=== PATIENT | female | born 1940 | race Caucasian/White ===

== ENCOUNTER 2016-09-09 13:02 | Outpatient (CLI) | END 2016-09-09 13:03 | disposition home or self-care (01) ==

== ENCOUNTER 2016-09-09 13:13 | Outpatient (CLI) | payer MEDICARE | END 2016-09-09 13:14 | disposition home or self-care (01) | DX: Z12.31 Encounter for screening mammogram for malignant neoplasm of breast (principal); Z80.3 Family history of malignant neoplasm of breast ==

== ENCOUNTER 2016-10-20 07:38 | Day surgery (SDC) | payer MEDICARE ==
[2016-10-20] MEDS ORDERED: LACTATED RINGERS 1,000 ML IV ONE (08:20)
[2016-10-20] MEDS ORDERED: fentaNYL 100 MCG/2 ML VIAL IVP ONE (08:59)
[2016-10-20] MEDS ORDERED: MIDAZOLAM 2 MG/2 ML VIAL IVP ONE (08:59)
== END 2016-10-20 07:39 | disposition home or self-care (01) ==
PROC: 0DJD8ZZ Inspection of Lower Intestinal Tract, Via Natural or Artificial Opening Endoscopic (ICD-10-PCS; principal; 2016-10-20 08:45)
DX: Z12.11 Encounter for screening for malignant neoplasm of colon (principal); K64.8 Other hemorrhoids
CPT/HCPCS: G0121; J7120

== ENCOUNTER 2017-07-20 09:59 | Outpatient (CLI) | payer MEDICARE ==
--- NOTE | 2017-07-20 14:17 | XRAY Report ---
TWO-VIEW CHEST: 07/20/2017 CLINICAL INDICATION: Shortness of breath. FINDINGS: Frontal and lateral views of the chest demonstrate a normal cardiac silhouette. The lungs are clear. No effusion or pneumothorax is present. IMPRESSION: NORMAL CHEST. JOB #: [id number] EXT JOB #:[id number]
== END 2017-07-20 10:00 | disposition home or self-care (01) ==
LOC: DI.S 09:59
PROVIDERS: ATTEND Physician Assistant
DX: R06.02 Shortness of breath (principal)
CPT/HCPCS: 71020

== ENCOUNTER 2017-08-10 12:50 | Outpatient (CLI) | payer MEDICARE | END 2017-08-10 12:51 | disposition home or self-care (01) | LOC: DI 12:50 | PROVIDERS: ATTEND Internal Medicine Cardiovascular Disease | DX: R01.1 Cardiac murmur, unspecified (principal); R06.00 Dyspnea, unspecified | CPT/HCPCS: 93306 ==

== ENCOUNTER 2017-09-01 11:30 | Outpatient (CLI) | payer MEDICARE ==
[2017-09-01 19:06] LABS: CALCIUM 9.1 mg/dL (8.5-10.3); CREATININE 0.6 mg/dL (0.4-1.0); POTASSIUM 3.9 mmol/L (3.5-5.0)
== END 2017-09-01 11:31 | disposition home or self-care (01) ==
LOC: LAB.F 11:30
PROVIDERS: ATTEND Internal Medicine Cardiovascular Disease
DX: I10 Essential (primary) hypertension (principal)
CPT/HCPCS: 36415; 80048

== ENCOUNTER 2018-09-16 14:19 | Outpatient (CLI) | payer MEDICARE ==
--- NOTE | 2018-09-16 18:23 | XRAY Report ---
Reason: PAIN IN RIGHT HIP Procedure Date: 09/16/2018 Accession Number: [id number] / [id number] Procedure: XR - Hip w/Pelvis 2-3V RT CPT Code: FULL RESULT: EXAM: RIGHT HIP AND PELVIS RADIOGRAPHY EXAM DATE: 09/16/2018 02:59 PM. HISTORY: PAIN IN RIGHT HIP. COMPARISONS: XR HIP UNILAT MIN 2 VIEW 06/03/2012 11:52 AM. TECHNIQUE: 1 view of the pelvis and 1 view of the hip. FINDINGS: Bones: Normal. No fracture or bone lesion. Joints: Mild bilateral hip joint space narrowing. No dislocation. Soft Tissues: Normal. No soft tissue swelling. IMPRESSION: Mild bilateral hip degenerative changes. RADIA
== END 2018-09-16 14:20 | disposition home or self-care (01) ==
LOC: DI 14:19
PROVIDERS: ATTEND Physician Assistant
DX: M16.0 Bilateral primary osteoarthritis of hip (principal)

== ENCOUNTER 2018-09-22 08:00 | Outpatient (CLI) | payer MEDICARE ==
[2018-09-22 19:10] LABS: BASOPHILS # (AUTO) 0.1 10^3/uL (0.0-0.1); BASOPHILS % (AUTO) 1.3 %; EOSINOPHILS # (AUTO) 0.3 10^3/uL (0.0-0.7); EOSINOPHILS % (AUTO) 3.8 %; HGB - HEMOGLOBIN 12.9 g/dL (12.0-16.0); LYMPHOCYTES # (AUTO) 1.6 10^3/uL (1.5-3.5); LYMPHOCYTES % (AUTO) 22.8 %; MEAN CORPUSCULAR HEMOGLOBIN 28.3 pg (27.0-31.0); MEAN CORPUSCULAR HGB CONC 32.1 g/dL (32.0-36.0); MEAN CORPUSCULAR VOLUME 88.1 fL (81.0-99.0); MONOCYTES # (AUTO) 0.6 10^3/uL (0.0-1.0); MONOCYTES % (AUTO) 8.3 %; NEUTROPHILS # (AUTO) 4.4 10^3/uL (1.5-6.6); NEUTROPHILS % (AUTO) 63.8 %; RED BLOOD COUNT 4.55 10^6/uL (4.20-5.40); RED CELL DISTRIBUTION WIDTH 12.9 % (12.0-15.0); WHITE BLOOD COUNT 6.9 x10^3/uL (4.8-10.8)
[2018-09-22 19:11] LABS: PLATELET ESTIMATE, MANUAL NORMAL (130-450,000) (NORMAL); PLATELET MORPHOLOGY NORMAL APPEARANCE (NORMAL); RBC MORPHOLOGY (MULTIPLE) NORMAL APPEARANCE (NORMAL)
== END 2018-09-22 23:59 | disposition home or self-care (01) ==
LOC: LAB.F 08:00
PROVIDERS: ATTEND Physician Assistant
DX: R79.9 Abnormal finding of blood chemistry, unspecified (principal)
CPT/HCPCS: 36415; 85025

== ENCOUNTER 2018-12-17 12:28 | Outpatient (CLI) | payer MEDICARE ==
--- NOTE | 2018-12-17 15:07 | XRAY Report ---
Reason: ACUTE BRONCHITIS UNSPECIFIED Procedure Date: 12/17/2018 Accession Number: [id number] / [id number] Procedure: XR - Chest 2 View X-Ray CPT Code: 34882 FULL RESULT: EXAM: CHEST RADIOGRAPHY EXAM DATE: 12/17/2018 01:14 PM. CLINICAL HISTORY: Acute bronchitis unspecified. Short of breath, non-productive cough x 1 month. COMPARISON: CHEST 2 VIEW PA/LAT 07/20/2017 10:13 AM. TECHNIQUE: 2 views. FINDINGS: Lungs/Pleura: No focal opacities evident. No pleural effusion. No pneumothorax. Normal volumes. There is questionably mild bronchial wall thickening, minimally increased compared to prior. Mediastinum: Cardiomediastinal contour is stable with borderline cardiomegaly and calcified aortic arch. Other: Bone anchors in the right humeral head, prior orthopedic repair. Abnormal appearance of the right AC joint, possible separation and not completely imaged. The bones are qualitatively osteopenic; this limits evaluation for underlying fractures or masses. IMPRESSION: Bilateral airway thickening can be seen in the setting of bronchiolitis or reactive airways disease. No focal lung parenchymal consolidation identified to suggest superimposed pneumonia. RADIA
== END 2018-12-17 12:29 | disposition home or self-care (01) ==
LOC: DI 12:28
PROVIDERS: ATTEND Nurse Practitioner Family
DX: J20.9 Acute bronchitis, unspecified (principal)
CPT/HCPCS: 71046

== ENCOUNTER 2018-12-29 08:02 | Outpatient (CLI) | payer MEDICARE ==
--- NOTE | 2018-12-29 09:21 | Mammography Report ---
Reason: ENCOUNTER FOR SCREENING MAMMOGRAM FOR MALIGNANT NE Procedure Date: 12/29/2018 Accession Number: [id number] / [id number] Procedure: KERRI - Screening Mammo w/Ted CPT Code: FULL RESULT: EXAM: Screening Mammo w/Ted DATE: 12/29/2018 8:34 AM CLINICAL HISTORY: Screening encounter. No reported risk factors. TECHNIQUE: (B) - Bilateral CC and MLO views were obtained. COMPARISON: 09/09/2016 through 27/05/2012. PARENCHYMAL PATTERN: (A) - The breast(s) demonstrate(s) scattered fibroglandular densities. FINDINGS: There are coarse typically benign calcifications. There are no suspicious masses, calcifications, or areas of distortion. IMPRESSION: Benign findings. BI-RADS category 2. RECOMMENDATION: (ANNUAL) - Recommend routine annual screening mammography. BI-RADS CATEGORY: (2) - Benign Findings. STANDARD QUALIFYING STATEMENTS: 1. This examination was not reviewed with the aid of Computer-Aided Detection (CAD). 2. A negative or benign imaging report should not preclude biopsy if clinically suspicious findings are present. 3. Dense breasts may obscure an underlying neoplasm. 4. This examination was reviewed with the aid of 3D breast imaging (tomosynthesis).
== END 2018-12-29 08:03 | disposition home or self-care (01) ==
LOC: DI 08:02
PROVIDERS: ATTEND Physician Assistant
DX: Z12.31 Encounter for screening mammogram for malignant neoplasm of breast (principal)
CPT/HCPCS: 77063; 77067

== ENCOUNTER 2018-12-29 08:03 | Outpatient (CLI) | payer MEDICARE ==
--- NOTE | 2018-12-30 09:00 | DEXA Report ---
Reason: ASYMPTOMATIC MENOPAUSAL STATE Procedure Date: 12/29/2018 Accession Number: [id number] / [id number] Procedure: DEX - Dexa Spine and/or Hip CPT Code: FULL RESULT: EXAM: Dexa Spine and/or Hip DATE: 12/29/2018 8:45 AM CLINICAL HISTORY: ASYMPTOMATIC MENOPAUSAL STATE TECHNIQUE: Dual energy x-ray absorptiometry (DXA) was performed on a Targeted Growth System. Regions measured are the AP Spine, femoral neck, and if needed forearm. COMPARISON: 09/09/2016. In accordance with the International Society for Clinical Densitometry (ISCD) guidelines, data from previous exams may be reanalyzed using current recommendations and techniques. This is done to allow a more accurate basis for comparison with the current study. FINDINGS: The data for the lumbar spine is as follows: BMD (g/cm/cm) T-SCORE Z-SCORE REGION L1 0.888 -2.0 -0.1 L2 0.948 -2.1 -0.2 L3 1.045 -1.3 0.6 L4 1.099 -0.8 1.0 TOTAL 1.001 -1.5 0.4 NOTE: All evaluable vertebrae are used for classification The data for the hip is as follows: BMD (g/cm/cm) T-SCORE Z-SCORE REGION Neck 0.728 -2.2 0.0 TOTAL 0.754 -2.0 0.0 NOTE: The femoral neck or total proximal femur, whichever is lowest, is used for classification. DXA RESULTS SUMMARY: Spine SCAN DATE AGE BMD CHANGE VS CHANGE VS PREVIOUS PREVIOUS % [birth year]29[birth year]2018 [age] 1.001 0.042* 4.4* 09/09/2016 [age] 0.959 * Denotes significant change at the 95% confidence level. Denotes dissimilar scan types or analysis methods. DXA RESULTS SUMMARY: Hip SCAN DATE AGE BMD CHANGE VS CHANGE VS PREVIOUS PREVIOUS % [birth year]29[birth year]2018 78.3 0.754 -0.022 -2.8 09/09/2016 [age] 0.776 * Denotes significant change at the 95% confidence level. Denotes dissimilar scan types or analysis methods. IMPRESSION: THE WHO CLASSIFICATION BASED ON THE INTERNATIONAL REFERENCE STANDARD IS OSTEOPENIA. THE FRACTURE RISK IS INCREASED. RECOMMENDATION: Patients with diagnosis of osteoporosis or osteopenia should have regular bone mineral density assessment. For those eligible for Medicare, routine testing is allowed once every 2 years. Testing frequency can be increased for patients who have rapidly progressing disease or for those who are receiving medical therapy to restore bone mass. COMMENT: World Health Organization (WHO) definitions for osteoporosis and osteopenia: NORMAL BMD: T-score at -1.0 or higher, fracture risk is low OSTEOPENIA BMD: T-score between -1.0 and -2.5, fracture risk is increased. OSTEOPOROSIS BMD: T-score at -2.5 or lower, fracture risk is high. National Osteoporosis Foundation recommends: 1. Obtain adequate dietary calcium (at least 1200 mg per day) and vitamin D (400-800 international units per day). 2. Participate, as appropriate, in regular weightbearing and muscle-strengthening exercise. 3. Avoid tobacco use and reduce alcohol and caffeine intake. 4. For more detailed information see the website at www.NOF.org.
== END 2018-12-29 08:04 | disposition home or self-care (01) ==
LOC: DI 08:03
PROVIDERS: ATTEND Physician Assistant
DX: M85.89 Other specified disorders of bone density and structure, multiple sites (principal)
CPT/HCPCS: 77080

== ENCOUNTER 2019-03-08 10:30 | Outpatient (CLI) | payer MEDICARE ==
--- NOTE | 2019-03-09 09:42 | XRAY Report ---
Reason: LOW BACK PAIN Procedure Date: 03/08/2019 Accession Number: [id number] / [id number] Procedure: XRS - Lumbar Spine 2 View CPT Code: FULL RESULT: EXAM: LUMBOSACRAL SPINE RADIOGRAPHY EXAM DATE: 03/08/2019 10:55 AM. CLINICAL HISTORY: Low back pain. COMPARISONS: None. TECHNIQUE: 3 views. FINDINGS: Alignment: Levoconvex lumbar curvature measures approximately 11 degrees from T12 to L4. 6 mm anterolisthesis at L4-L5. No fortunato spondylolysis. Bones: Five eyg-wwi-kssjjjh lumbar vertebral bodies are present. No fractures or bone lesions. Disks: Mild disk space narrowing at L3-L4 and L4-L5 Facets: L4-L5 and L5-S1 degenerative disease. Sacroiliac Joints: Unremarkable. Soft Tissues: 2.5 cm rounded grouping of coarse calcifications in the pelvis probably represents a calcified fibroid. The visualized bowel gas pattern is normal. IMPRESSION: 1. No definite acute abnormality. 2. 11 degrees of levoconvex lumbar curvature. 3. Degenerative disk and facet disease, as above. 4. Grade 1 anterolisthesis at L4-L5, without fortunato spondylolysis. 5. Probable calcified uterine fibroid. RADIA
== END 2019-03-08 10:31 | disposition home or self-care (01) ==
LOC: DI.S 10:30
PROVIDERS: ATTEND Physician Assistant
DX: M43.8X5 Other specified deforming dorsopathies, thoracolumbar region (principal); M51.36 Other intervertebral disc degeneration, lumbar region; M47.816 Spondylosis without myelopathy or radiculopathy, lumbar region; M47.817 Spondylosis without myelopathy or radiculopathy, lumbosacral region; M43.16 Spondylolisthesis, lumbar region
CPT/HCPCS: 72100

== ENCOUNTER 2019-04-20 18:40 | Outpatient (CLI) | payer MEDICARE | END 2019-04-20 18:41 | disposition short-term general hospital (02) | LOC: EMS 18:40 | PROVIDERS: ATTEND Surgery | DX: R55 Syncope and collapse (principal); R12 Heartburn | CPT/HCPCS: A0425; A0427 ==

== ENCOUNTER 2019-06-20 11:20 | Outpatient (CLI) | payer MEDICARE ==
--- NOTE | 2019-06-20 16:03 | XRAY Report ---
Reason: KNEE PAIN Procedure Date: 06/20/2019 Accession Number: [id number] / [id number] Procedure: XRS - Knee 3 View LT CPT Code: FULL RESULT: EXAM: LEFT KNEE RADIOGRAPHY EXAM DATE: 06/20/2019 11:41 AM. CLINICAL HISTORY: Left knee injury 3 weeks ago while lifting weights. Pain is lateral to the patella. COMPARISON: None. TECHNIQUE: 3 views. FINDINGS: Bones: Normal. No fractures or bone lesions. Joints: There is mild joint space narrowing along the lateral patellar facet with mild lateral deviation of the patella. No dislocation or joint effusion. Soft Tissues: Normal. No soft tissue swelling. IMPRESSION: Mild lateral deviation of the patella with apparent joint space narrowing along the lateral patella facet. RADIA
== END 2019-06-20 11:21 | disposition home or self-care (01) ==
LOC: DI.S 11:20
PROVIDERS: ATTEND Nurse Practitioner Family
DX: M25.562 Pain in left knee (principal)

== ENCOUNTER 2020-02-20 11:26 | Outpatient (CLI) | payer MEDICARE ==
--- NOTE | 2020-02-23 08:13 | Mammography Report ---
Reason: ROUTINE Procedure Date: 02/20/2020 Accession Number: [id number] / [id number] Procedure: MGS - Screening Mammo Dig Bilat CPT Code: Final Report FULL RESULT: BILATERAL DIGITAL SCREENING MAMMOGRAM: 02/20/2020 CLINICAL: Routine screening. Comparison is made to exams dated: 08/27/2016 mammogram, 12/29/2018 mammogram, 10/20/2013 mammogram, and 10/11/2013 mammogram - [facility]. There are scattered fibroglandular elements in both breasts. No significant masses, calcifications, or other findings are seen in either breast. There has been no significant interval change. IMPRESSION: NEGATIVE There is no mammographic evidence of malignancy. A 1 year screening mammogram is recommended. This exam was interpreted at Station ID: [id number]. NOTE: For mammograms, a report in lay terms will be sent to the patient. Approximately 15% of breast malignancies will not be visualized mammographically. In the management of a palpable breast mass, a negative mammogram must not discourage biopsy of a clinically suspicious lesion. Electronically Signed By: Nichelle ayers/jamar:02/22/2020 13:24:02 ACR BI-RADS Category 1: Negative 3341F B -Scattered fibroglandular 1 Mammogram [id number] 1 year screening B
== END 2020-02-20 11:27 | disposition home or self-care (01) ==
LOC: DI.S 11:26
PROVIDERS: ATTEND Physician Assistant
DX: Z12.31 Encounter for screening mammogram for malignant neoplasm of breast (principal)
CPT/HCPCS: 77067

== ENCOUNTER 2021-06-05 10:49 | Outpatient (CLI) | payer MEDICARE ==
[2021-06-05 15:02] LABS: BILIRUBIN,URINE NEGATIVE (NEGATIVE); GLUCOSE, URINE (UA) NEGATIVE (NEGATIVE); KETONES,URINE (UA) NEGATIVE (NEGATIVE); LEUKOCYTE ESTERASE, URINE NEGATIVE (NEGATIVE); NITRITE,URINE NEGATIVE (NEGATIVE); OCCULT BLOOD,URINE MODERATE (NEGATIVE); PROTEIN,URINE TRACE mg/dL (NEGATIVE); UROBILINOGEN,URINE 0.2 (NORMAL) E.U./dL (NORMAL)
[2021-06-05 15:03] LABS: CLARITY,URINE CLEAR (CLEAR)
[2021-06-05 15:14] LABS: BACTERIA,URINE Few /HPF (None Seen); SQUAMOUS EPITHELIAL CELL,UR RARE Squamous (<= Few)
[2021-06-05 20:39] LABS: BACTERIAL VAGINOSIS DNA NEGATIVE (NEGATIVE); CANDIDA GLABRATA DNA NEGATIVE (NEGATIVE); CANDIDA GROUP DNA NEGATIVE (NEGATIVE); CANDIDA KRUSEI DNA NEGATIVE (NEGATIVE); TRICHOMONAS VAGINALIS DNA NEGATIVE (NEGATIVE)
== END 2021-06-05 10:50 ==
LOC: LAB.S 10:49
PROVIDERS: ATTEND Physician Assistant Medical
DX: L29.8 Other pruritus (principal); N39.0 Urinary tract infection, site not specified
CPT/HCPCS: 81001; 87077; 87086; 87181; 87661; 87801

== ENCOUNTER 2022-05-27 18:09 | Outpatient (CLI) | payer MEDICARE | END 2022-05-27 18:10 | disposition critical access hospital (66) | LOC: EMS 18:09 | DX: R53.1 Weakness (principal); R05.9 Cough, unspecified; R07.9 Chest pain, unspecified; R50.9 Fever, unspecified | CPT/HCPCS: A0425; A0429 ==

== ENCOUNTER 2022-05-27 18:45 | Emergency (ER) | payer MEDICARE ==
--- OUTSIDE RECORDS SUMMARY | 2022-05-27 18:54 | EXTERNAL MEDICAL SUMMARY RPT | Continuity of Care Document ---
:1940 Author Organization [facility] Address [address] [place] [address] Phone Care Team Providers Name Role Phone Unavailable Unavailable Unavailable Ronaldo Ruano, Lisa Unavailable Unavailable [place] Patient Registrar, Cora Unavailable Unava ilable Allergies No information. Encounters No information. Functional Status No information. Immunizations No information. Medications date description facility [phone] INFLAVONOID INTENSIVE CARE Walk[facility] C daniel [phone]+0000 INFLAVONOID INTENSIVE CARE Walk[facility] Services C daniel [phone]+0000 VITAMIN C 2000MG [facility] Services C daniel [phone]+0000 VITAMIN C 2000MG [facility] C daniel [phone]+0000 FLUTICASONE PROPIONATE [facility] C daniel [phone]+0000 FLUTICASONE PROPIONATE [facility] daniel [phone]+0000 ASPIRIN [facility] C daniel [phone]+0000 ASPIRIN [facility] C daniel [phone]+0000 MULTIPLE VITAMIN [facility] C daniel [phone]+0000 MULTIPLE VITAMIN [facility] C daniel [phone]+0000 VITAMIN E [facility] C daniel [phone]+0000 VITAMIN E [facility] C daniel [phone]+0000 FLUTICASONE PROPIONATE [facility] daniel [phone]+0000 FLUTICASONE PROPIONATE [facility] C daniel [phone]+0000 MULTIPLE VITAMIN [facility] C daniel [phone]+0000 MULTIPLE VITAMIN [facility] C daniel [phone]+0000 [id number] E [facility] C daniel [phone]+0000 [id number] E [facility] C daniel [phone]+0000 EPINEPHRINE HCL (ANAPHYLAXIS) [facility] daniel [phone]+0000 EPINEPHRINE HCL (ANAPHYLAXIS) [facility] C daniel [phone]+0000 FLUTICASONE PROPIONATE [facility] C daniel [phone]+0000 FLUTICASONE PROPIONATE [facility] C daniel [phone]+0000 ASPIRIN [facility] C daniel [phone]+0000 ASPIRIN [facility] C daniel [phone]+0000 VITAMIN E [facility] C daniel [phone]+0000 VITAMIN E [facility] C daniel [phone]+0000 NUTRITIONAL SUPPLEMENTS [facility] C daniel [phone]+0000 NUTRITIONAL SUPPLEMENTS [facility] C daniel [phone]+0000 ASPIRIN [facility] C daniel [phone]+0000 ASPIRIN [facility] C daniel [phone]+0000 COENZYME Q10 [facility] C daniel [phone]+0000 COENZYME Q10 [facility] C daniel [phone]+0000 MAGNESIUM GLYCINATE [facility] C daniel [phone]+0000 MAGNESIUM GLYCINATE [facility] C daniel [phone]+0000 EPINEPHRINE HCL (ANAPHYLAXIS) [facility] C daniel [phone]+0000 EPINEPHRINE HCL (ANAPHYLAXIS) [facility] C daniel [phone]+0000 VITAMIN E [facility] C daniel [phone]+0000 VITAMIN E [facility] C daniel [phone]+0000 FLUTICASONE PROPIONATE [facility] C daniel [phone]+0000 FLUTICASONE PROPIONATE [facility] C daniel [phone]+0000 MAGNESIUM GLYCINATE [facility] C daniel [phone]+0000 MAGNESIUM GLYCINATE [facility] C daniel [phone]+0000 COENZYME Q10 [facility] C daniel [phone]+0000 COENZYME Q10 [facility] C daniel [phone]+0000 EPINEPHRINE HCL (ANAPHYLAXIS) [facility] C daniel [phone]+0000 EPINEPHRINE HCL (ANAPHYLAXIS) [facility] C daniel [phone]+0000 NUTRITIONAL SUPPLEMENTS [facility] C daniel [phone]+0000 NUTRITIONAL SUPPLEMENTS [facility] C daniel [phone]+0000 ASPIRIN [facility] C daniel [phone]+0000 ASPIRIN [facility] C daniel [phone]+0000 VITAMIN E [facility] C daniel [phone]+0000 VITAMIN E [facility] C daniel [phone]+0000 MULTIPLE VITAMIN [facility] C daniel [phone]+0000 MULTIPLE VITAMIN [facility] C daniel [phone]+0000 [id number] E [facility] C daniel [phone]+0000 [id number] E [facility] C daniel [phone]+0000 NUTRITIONAL SUPPLEMENTS [facility] C daniel [phone]+0000 NUTRITIONAL SUPPLEMENTS [facility] C daniel [phone]+0000 MAGNESIUM GLYCINATE [facility] Care & Ancillary Services C daniel [phone]+0000 MAGNESIUM GLYCINATE [facility] Care & Ancillary Services C daniel [phone]+0000 COENZYME Q10 [facility] C daniel +0000 COENZYME Q10 [facility] C daniel +0000 [id number] E [facility] C daniel +0000 [id number] E [facility] C daniel +0000 MAGNESIUM GLYCINATE [facility] Care & Ancillary Services C daniel +0000 MAGNESIUM GLYCINATE [facility] Care & Ancillary Services Luis sanchez Problems No information. Procedures date description facility +0000 Visit Code Hold [facility] Services C daniel +0000 COVID, FLU A+B Antigen (In Walk[facility]In in [facility] Free Test) Ancillary Services Luis sanchez Results/Labs No information. Social History date description facility +0000 Never smoker [facility] & [facility] Services [place] Vital Signs date measurement value units +0000 BMI BMI 26.82 kg/m2 +0000 BP_diastolic BP_diastolic 91 mmHg +0000 BP_systolic BP_systolic 184 mmHg +0000 heart_rate heart_rate 70 /min +0000 height_metric height_metric 153.03 cm +0000 height_standard height_standard 60.25 in +0000 respiration_rate respiration_rate 16 /min +0000 temperature_metric temperature_metric 37.06 C +0000 temperature_standard temperature_standard 9 8.7 F +0000 weight_metric weight_metric 62.6 kg +0000 weight_standard weight_standard 138 lb
[2022-05-27 19:09] LABS: BASOPHILS # (AUTO) 0.1 10^3/uL (0.0-0.1); EOSINOPHILS # (AUTO) 0.1 10^3/uL (0.0-0.7); HCT - HEMATOCRIT 34.2 % (37.0-47.0); HGB - HEMOGLOBIN 11.9 g/dL (12.0-16.0); LYMPHOCYTES # (AUTO) 0.5 10^3/uL (1.5-3.5); LYMPHOCYTES % (AUTO) 10.4 %; MEAN CORPUSCULAR HEMOGLOBIN 29.3 pg (27.0-31.0); MEAN CORPUSCULAR HGB CONC 34.8 g/dL (32.0-36.0); MEAN CORPUSCULAR VOLUME 84.2 fL (81.0-99.0); MEAN PLATELET VOLUME 9.8 fL (7.9-10.8); NEUTROPHILS # (AUTO) 3.3 10^3/uL (1.5-6.6); NEUTROPHILS % (AUTO) 66.4 %; PLT - PLATELET COUNT 192 10^3/uL (130-450); RED BLOOD COUNT 4.06 10^6/uL (4.20-5.40); WHITE BLOOD COUNT 4.9 x10^3/uL (4.8-10.8)
[2022-05-27 19:20] LABS: ALBUMIN 3.9 g/dL (3.2-5.5); ALBUMIN/GLOBULIN RATIO 1.5 (1.0-2.2); BILIRUBIN,TOTAL 0.6 mg/dL (0.2-1.0); CALCIUM 8.9 mg/dL (8.5-10.3); CREATININE 0.6 mg/dL (0.4-1.0); POTASSIUM 3.3 mmol/L (3.5-5.0); TOTAL PROTEIN 6.5 g/dL (6.7-8.2)
--- NOTE | 2022-05-27 19:32 | XRAY Report ---
PROCEDURE: Chest 1 View X-Ray INDICATIONS: Chest Pain TECHNIQUE: One view of the chest was acquired. COMPARISON: Chest radiographs 12/17/2018 FINDINGS: Surgical changes and devices: Surgical anchors are seen in the right. Lungs and pleura: No pleural effusions or pneumothorax. Lungs are mildly hyperexpanded. Chronic appe aring reticulations are seen bilaterally. No acute consolidation. Mediastinum: Mediastinal contours appear normal. Heart size is mildly enlarged. Bones and chest wall: No suspicious bony lesions. Overlying soft tissues appear unremarkable. IMPRESSION: 1.Mildly hyperexpanded lungs can be seen in setting of COPD. 2.Mild cardiomegaly. 3.Bilateral chronic reticular interstitial markings. No acute consolidation. Reviewed by: Arnoldo Andino MD on 05/27/2022 7:31 PM PDT Approved by: Arnoldo Andino MD on 05/27/2022 7:31 PM PDT Station ID: [id number]
--- NOTE | 2022-05-27 19:36 | ED Physician Documentation ---
PD HPI URI - Stated complaint Stated Complaint: CHEST PX - Chief complaint Chief Complaint: Resp - History obtained from History obtained from: Patient - History of Present Illness Timing - onset: Today - Additional information Additional information: Patient is an 81-year-old female who presents to the emergency department with a cough for the past 2 days. Negative COVID test today. She states that she has had intermittent chest pain, 1 to 2 minutes at a time, feels like a pressure. Nonradiating. Nothing makes it better or worse. This started last night and has occurred intermittently throughout the day. No change with exertion, inspiration. 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[employer]OMATIC: Tubal ligation - Present Medications Home Medications: Ambulatory Orders Medication Instructions Recorded Confirmed Aspirin Chewable [[place] 80 mg PO DAILY 10/17/16 10/17/16 Aspirin] Losartan [Cozaar] 50 mg PO DAILY 10/17/16 10/20/16 Ubidecarenone [Co Q-10] 100 mg PO DAILY 10/17/16 10/20/16 Latanoprost 0.005% Ophth Drops 1 drops EACHEYE DAILY 10/20/16 10/20/16 [Xalatan Ophth Drops] Timolol 0.25% Ophth Drops 1 drops EACHEYE BID 10/20/16 10/20/16 [Timoptic 0.25% Ophth Drops] - Allergies Allergies/Adverse Reactions: Allergies Allergy/AdvReac Type Severity Reaction Status Date / Time Sulfa (Sulfonamide Allergy Hives Verified 05/27/22 18:51 Antibiotics) PD ED PE NORMAL - Vitals Vital signs reviewed: Yes - General General: Alert and oriented X 3, No acute distress - HEENT HEENT: PERRL, Moist mucous membranes - Neck Neck: Supple, no meningeal sign - Cardiac Cardiac: RRR, Strong equal pulses - Respiratory Respiratory: No respiratory distress, Clear bilaterally - Abdomen Abdomen: Soft, Non tender, Non distended - Derm Derm: Warm and dry - Extremities Extremities: No edema, No calf tenderness / cord - Neuro Neuro: Alert and oriented X 3 - Psych Psych: Normal mood, Normal affect Results - Vitals Vitals: Vital Signs - 24 hr 05/27/22 05/27/22 18:51 19:40 Temperature 36.9 C 36.5 C Heart Rate 73 70 Respiratory 16 14 Rate Blood Pressure 130/90 H 138/83 H O2 Saturation 98 99 Oxygen O2 Source Room air - EKG (time done) 1900 Rate: Rate (enter#) (71) Rhythm: NSR [place]: Normal Intervals: Normal PA QRS: Normal Ischemia: Normal ST segments - Labs Labs: Laboratory Tests 05/27/22 05/27/22 05/27/22 19:00 19:00 19:00 WBC 4.9 RBC 4.06 L Hgb 11.9 L Hct 34.2 L MCV 84.2 MCH 29.3 MCHC 34.8 RDW 13.0 Plt Count 192 MPV 9.8 Neut # (Auto) 3.3 Lymph # (Auto) 0.5 L [place] # (Auto) 1.0 Eos # (Auto) 0.1 Baso # (Auto) 0.1 Absolute Nucleated RBC 0.00 Nucleated RBC % 0.0 Sodium 127 L Potassium 3.3 L Chloride 91 L Carbon Dioxide 26 Anion Gap 10.0 BUN 10 Creatinine 0.6 Estimated GFR (MDRD) 95 Glucose 109 H Calcium 8.9 Total Bilirubin 0.6 AST 27 ALT 21 Alkaline Phosphatase 63 Troponin I High Sens 6.3 Total Protein 6.5 L Albumin 3.9 Globulin 2.6 Albumin/Globulin Ratio 1.5 Lipase 31 - Rads (name of study) Chest x-ray Radiology: Final report received, EMP read contemporaneously, See rad report (No acute abnormality) PD MEDICAL DECISION MAKING - ED course Complexity details: reviewed results, re-evaluated patient, considered differential (No ST elevation VT, no aortic dissection, no PE, no tension pneumothorax, no aortic aneurysm), d/w patient ED course: Patient with atypical chest pain. Likely related to her upper respiratory infection. No evidence of pneumonia. She is very well-appearing, nontoxic. No evidence of acute coronary syndrome, pulmonary embolus, pneumothorax, myocarditis. Patient is asymptomatic here. Patient counseled regarding signs and symptoms for which I believe and urgent re-evaluation would be necessary. Patient with good understanding of and agreement to plan and is comfortable going home at this time This document was made in part using voice recognition software. While efforts are made to proofread this document, sound alike and grammatical errors may occur. Departure - Departure Disposition: 01 Home, Self Care Clinical Impression: Hyponatremia Upper respiratory tract infection Qualifiers: URI type: unspecified viral URI Qualified Code(s): J06.9 - Acute upper respiratory infection, unspecified Chest pain Qualifiers: Chest pain type: unspecified Qualified Code(s): R07.9 - Chest pain, unspecified Condition: Good Instructions: ED Chest Pain Atypical Unkn Cause, ED Viral Syndrome Follow-Up: Sarina Petit ARNP [Primary Care Provider] - Within 1 week Comments: Please make sure you are drinking plenty of water at home. Please follow-up with your doctor for further care. Please return if you worsen. You should have your sodium levels rechecked with your doctor within 1 week. Discharge Date/Time: 05/27/22 19:39
[2022-05-27 19:41] VITALS: BP 138/83
== END 2022-05-27 19:39 | disposition home or self-care (01) ==
LOC: EDUNIT# → ED 18:45
DX: J06.9 Acute upper respiratory infection, unspecified (principal); E87.1 Hypo-osmolality and hyponatremia
CPT/HCPCS: 36415; 80053; 83690; 84484; 85025; 93005; 99283; 99284

== ENCOUNTER 2022-10-07 07:12 | Outpatient (CLI) | payer MEDICARE ==
--- NOTE | 2022-10-07 11:41 | XRAY Report ---
PROCEDURE: Hip w/Pelvis 2-3V LT INDICATIONS: ARTHRITIS OF LEFT HIP TECHNIQUE: AP pelvis with lateral view(s) of the with hip(s). COMPARISON: X-ray head 09/16/2018 FINDINGS: Bones: No fractures or dislocations. Pelvic ring appears intact. No suspicious bony lesions. Ther e is moderate bilateral degenerative hip joint space narrowing. No erosions. No periarticular osteoph ytes. Appearance is relatively stable. Soft tissues: The visualized bowel gas pattern is normal. Calcification is noted overlying the lower left pelvis likely related to calcified fibroid and is unchanged. IMPRESSION: Moderate bilateral hip arthritis stable compared to prior exam. Reviewed by: Mary Beth Ayers MD on 10/07/2022 11:40 AM PST Approved by: Mary Beth Ayers MD on 10/07/2022 11:40 AM PST Station ID: [id number]
[2022-10-07 14:23] LABS: CALCIUM 9.4 mg/dL (8.5-10.3); CREATININE 0.6 mg/dL (0.4-1.0); POTASSIUM 4.1 mmol/L (3.5-5.0)
== END 2022-10-07 07:13 | disposition home or self-care (01) ==
LOC: DI.S 07:12
PROVIDERS: ATTEND Registered Nurse
DX: M16.0 Bilateral primary osteoarthritis of hip (principal); I10 Essential (primary) hypertension
CPT/HCPCS: 36415; 80048

== ENCOUNTER 2023-05-02 10:11 | Emergency (ER) | payer MEDICARE ==
--- NOTE | 2023-05-02 10:35 | ED Physician Documentation ---
PD HPI FOCAL NEURO - Stated complaint Stated Complaint: VILLALPANDO,DIZZINESS - Chief complaint Chief Complaint: Neuro - History obtained from History obtained from: Patient - History of Present Illness Timing - onset: How many hours ago (1 1/2), Today Timing - duration: Minutes (10-15) Timing - details: Now resolved, Other (she was with for walk outdoors and came across a friend and tried to talk iwth her, but was having trouble finding correct words. Able to speak words and enunciate, but wearched for correct words. Lasted about 10-15 minutes as she walked back home. No focal weaknesses with it. BP noted high.) Severity of deficit: Mild Weakness: No: Face, Arm, Leg Numbness: No: Face, Arm, Leg Associated symptoms: No: Headache, Nausea / vomiting Contributing factors: negative: Anticoagulated, Atrial fibrillation Baseline status: positive: A&OX3, ambulatory, indep Similar symptoms before: Has not had sx before Recently seen: Not recently seen Review of Systems Constitutional: denies: Fever, Chills Nose: denies: Rhinorrhea / runny nose, Congestion Throat: denies: Sore throat Cardiac: denies: Chest pain / pressure, Palpitations Respiratory: denies: Dyspnea, Cough GI: denies: Abdominal Pain, Nausea, Vomiting Neurologic: denies: Focal weakness, Numbness, Near syncope, Altered mental status, Headache PD PAST MEDICAL HISTORY - Past Medical History Cardiovascular: Hypertension, Other Respiratory: Asthma, Shortness of breath, Other Endocrine/Autoimmune: None GI: None : None HEENT: Glaucoma, Other Psych: None Musculoskeletal: Osteoarthritis Derm: None - Past Surgical History Ortho: Rotator cuff repair /CLAIMS 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: Tubal ligation - Present Medications Home Medications: Ambulatory Orders Medication Instructions Recorded Confirmed Losartan [Cozaar] 50 mg PO DAILY 10/17/16 05/02/23 Latanoprost 0.005% Ophth Drops 1 drops EACHEYE DAILY 10/20/16 05/02/23 [Xalatan Ophth Drops] - Allergies Allergies/Adverse Reactions: Allergies Allergy/AdvReac Type Severity Reaction Status Date / Time Sulfa (Sulfonamide Allergy Hives Verified 05/02/23 10:15 Antibiotics) PD ED PE NORMAL - Vitals Vital signs reviewed: Yes - General General: Alert and oriented X 3, No acute distress, Well developed/nourished - HEENT HEENT: Moist mucous membranes, Pharynx benign - Neck Neck: Supple, no meningeal sign, No adenopathy, No bruit - Cardiac Cardiac: RRR, Other (2/6 systolic decrescendo murmur left chest without obvious radiation. ) - Respiratory Respiratory: Clear bilaterally - Abdomen Abdomen: Soft, Non tender - Derm Derm: Normal color, Warm and dry - Extremities Extremities: No edema, No calf tenderness / cord - Neuro Neuro: Alert and oriented X 3, No motor deficit, Normal speech NIHSS - Level of Consciousness Level of consciousness: (0) Alert, Keenly responsive LOC Questions: (0) Answers both Q's correct LOC Commands: (0) Performs both correctly - Gaze Best Gaze: (0) Normal - Visual Visual: (0) No loss - Facial Palsy Facial Palsy: (0) Normal, symmetrical movement - Motor Arms (both separate) Motor Arm (right): (0) No drift Motor Arm (left): (0) No drift - Motor Legs (both separate) Motor Leg (right): (0) No drift Motor Leg (left): (0) No drift - Limb Ataxia Limb Ataxia: (0) Absent - Sensory Sensory: (0) Normal - Best Language Best Language: (0) No aphasia - Dysarthria Dysarthria: (0) Normal - Extinction and Inattention (formally neg Extinction and inattention: (0) No abnormality - Total Score/Results Total Score/Result: 0 Results - Vitals Vitals: Vital Signs - 24 hr 05/02/23 05/02/23 05/02/23 10:16 11:00 11:22 Temperature 36.6 C Heart Rate 79 58 L 57 L Respiratory 18 14 15 Rate Blood Pressure 228/97 H 212/85 H 190/74 H O2 Saturation 96 100 100 05/02/23 05/02/23 13:11 14:17 Temperature Heart Rate 61 64 Respiratory 15 15 Rate Blood Pressure 220/92 H 191/84 H O2 Saturation 97 95 Oxygen O2 Source Room air - Labs Labs: Laboratory Tests 05/02/23 05/02/23 10:33 10:33 WBC 7.0 RBC 4.48 Hgb 12.7 Hct 39.0 MCV 87.1 MCH 28.3 MCHC 32.6 RDW 13.6 Plt Count 146 MPV 11.3 H Neut # (Auto) 4.8 Lymph # (Auto) 1.3 L [place] # (Auto) 0.5 Eos # (Auto) 0.2 Baso # (Auto) 0.1 Absolute Nucleated RBC 0.00 Nucleated RBC % 0.0 Sodium 135 Potassium 4.0 Chloride 101 Carbon Dioxide 27 Anion Gap 7.0 BUN 13 Creatinine 0.6 Estimated GFR (MDRD) 95 Glucose 96 Calcium 9.7 Magnesium 1.8 Total Bilirubin 0.5 AST 28 ALT 22 Alkaline Phosphatase 84 Total Protein 7.3 Albumin 4.3 Globulin 3.0 Albumin/Globulin Ratio 1.4 Lipase 25 - Rads (name of study) head/neck CTA Relevant Findings:: Prelim report reviewed (no acute findings on imaging/angio.) PD Medical Decision Making - ED course Complexity details: reviewed results (ECG showing sinus rhythm. ), considered differential, d/w patient ED course: The patient states she was on a walk with her which she commonly does in the mornings. They had not eaten as yet and she had not taken her normal medicines. This also is not uncommon. She ran into a friend on the [place] and noted difficulty finding the right words and expressing herself. She was able to articulate words but had word search. No focal weaknesses. No lightheadedness. She was able to continue walking without any unilateral weakness no ataxia. No visual change. The symptoms lasted however for about 10 to 15 minutes and then improved when they were back at the [place] head and rested. Her friend suggested she come in for evaluation. She had been feeling otherwise well the rest several days. They have some psychological stress at home with some home repairs due to a broken project [employer] and media and toilet and some friends visiting but otherwise had been feeling well. No prior similar symptoms. She does take typical blood pressure medicine losartan 50 mg daily. She had her blood pressure checked a week ago and it was 140 systolic at a regular visit. Here her blood tests have been normal. CT angio of the head and neck did not show any acute abnormalities. Her blood pressure is elevated here but she is without any symptoms. She was given her dose of her losartan. Otherwise we will start her on a baby aspirin. She does have a heart murmur that she states has not been evaluated previously but is a known murmur. In the context of the symptoms she had today, it could be prudent to get a outpatient ultrasound/echo to better evaluate it. Departure - Departure Disposition: 01 Home, Self Care Clinical Impression: Expressive aphasia, TIA (transient ischemic attack), Elevated blood pressure reading, Heart murmur Condition: Stable Record reviewed to determine appropriate education?: Yes Instructions: ED Transient Ischemic Attack Follow-Up: Humberto Gardner MD [Provider Admit Priv/Credential] - Alex Araiza MD [Provider Admit Priv/Credential] - Comments: Check your blood pressure daily or twice daily over the next week. Record the levels to see how the trend is. Continue with your current losartan 50 mg daily. Follow-up with your [facility] primary care to see if your blood pressure medicine needs adjusting based on your blood pressure readings. Your symptoms today would be suggestive of a TIA although there may have been other causes such as under hydration, should sugar abnormality, blood pressure abnormality or heat rather than 80 diminished blood flow through particular blood vessel in your head or neck. However we would want to treat for TIA with a baby aspirin daily 81 mg until otherwise advised. This will try to reduce the chance for further episodes. Your CT did not show any acute abnormalities today. That does not preclude a transient diminished flow through some of the vessels to the brain. You do have a heart murmur as well and in the context of your symptoms today, it would be prudent to get a formal study of your heart valves ( ultrasound/echocardiogram). This could be ordered outpatient through your primary care or through the your cardiology office. Return to the ER if recurring episodes of symptoms. Stay hydrated well o therwise. Forms: PCP List Discharge Date/Time: 05/02/23 14:21
[2023-05-02] MEDS ORDERED: LOSARTAN 50 MG TABLET PO STA ×2 (11:07→14:01)
[2023-05-02 11:12] LABS: BASOPHILS # (AUTO) 0.1 10^3/uL (0.0-0.1); BASOPHILS % (AUTO) 0.9 %; EOSINOPHILS # (AUTO) 0.2 10^3/uL (0.0-0.7); EOSINOPHILS % (AUTO) 3.5 %; HGB - HEMOGLOBIN 12.7 g/dL (12.0-16.0); LYMPHOCYTES # (AUTO) 1.3 10^3/uL (1.5-3.5); LYMPHOCYTES % (AUTO) 18.7 %; MEAN CORPUSCULAR HEMOGLOBIN 28.3 pg (27.0-31.0); MEAN CORPUSCULAR HGB CONC 32.6 g/dL (32.0-36.0); MEAN CORPUSCULAR VOLUME 87.1 fL (81.0-99.0); MEAN PLATELET VOLUME 11.3 fL (7.9-10.8); MONOCYTES # (AUTO) 0.5 10^3/uL (0.0-1.0); MONOCYTES % (AUTO) 7.5 %; NEUTROPHILS # (AUTO) 4.8 10^3/uL (1.5-6.6); NEUTROPHILS % (AUTO) 69.3 %; PLT - PLATELET COUNT 146 10^3/uL (130-450); RED BLOOD COUNT 4.48 10^6/uL (4.20-5.40); RED CELL DISTRIBUTION WIDTH 13.6 % (12.0-15.0)
[2023-05-02 11:25] LABS: ALBUMIN 4.3 g/dL (3.2-5.5); ALBUMIN/GLOBULIN RATIO 1.4 (1.0-2.2); BILIRUBIN,TOTAL 0.5 mg/dL (0.2-1.0); CALCIUM 9.7 mg/dL (8.5-10.3); CREATININE 0.6 mg/dL (0.6-1.3); MAGNESIUM 1.8 mg/dL (1.7-2.3); TOTAL PROTEIN 7.3 g/dL (6.4-8.9)
[2023-05-02] MEDS: KETOROLAC 15 MG/ML VIAL IVP STA ×2 (13:06→13:10)
[2023-05-02] MEDS ORDERED: ASPIRIN CHEW 81 MG TABLET PO STA (13:22)
--- NOTE | 2023-05-02 13:24 | CT Report ---
PROCEDURE: CT Angio Head/Neck INDICATIONS: word search, confused for 15 min today TECHNIQUE: After the administration of intravenous contrast, 1 mm thick sections acquired from the aortic arch t hrough the [place]. 3-dimensional oxwowrt-nrzxxwoln-kkpahgbuow (MIP) and/or volume renderin g reformats were acquired of the central intracranial vasculature and neck separately. For radiation dose reduction, the following was used: automated exposure control, adjustment of mA and/or kV acco rding to patient size. CONTRAST: 100 cc Omnipaque 300 COMPARISON: None. FINDINGS: Image quality: Diagnostic. HEAD CT: CSF Spaces: Basal cisterns are patent. No extra-axial fluid collections. Ventricles are normal in size and shape. Brain: No significant abnormality of the brain can be seen for age. Skull and face: Calvarium and visualized facial bones appear intact, without suspicious lesions. Sinuses: Visualized sinuses and mastoids are clear. HEAD CT ANGIOGRAPHY: Anterior circulation: Intracranial internal carotid arteries are normal in size and flow. Note is m cheryl of a diminutive left A1 segment, with a correspondingly robust right A1 segment. This is consider ed to be a developmental variant of no clinical consequence. Incidental note is made of an accessory branch of the anterior cerebral artery system, terminates from the anterior communicating artery The flow within the paired anterior cerebral arteries is otherwise normal and symmetric. The flow within the middle cerebral arteries is normal and symmetric. The anterior communicating artery is seen. N o aneurysms are seen. Posterior circulation: Visualized portions of the vertebral arteries demonstrate normal caliber, and join to form a normal appearing basilar artery. Flow within the posterior cerebral arteries is norm al and symmetric. No aneurysms are seen. NECK CT ANGIOGRAPHY: Carotid system: The great vessels demonstrate a conventional anatomy as they arise from the aortic a [facility]. Dr. gipson The origins of the common carotid arteries appear patent. The common carot id arteries demonstrate normal caliber and courses. The bifurcation regions are both widely patent. The internal carotid arteries demonstrate normal calibers and courses. Posterior circulation: The origins of the vertebral arteries both appear widely patent. The more neves perior extracranial portions of both vertebral arteries also demonstrate normal courses and calibers. They join to form a normal appearing basilar artery. Soft tissues: Visualized neck soft tissues demonstrate no suspicious abnormalities. Bones: No suspicious bony lesions. Visualized cervical spine appears normally aligned. Moderate ce rvical spine degenerative change can be seen. IMPRESSION: No imaging explanation is found for the patient's presenting symptoms. No significant intracranial arterial abnormalities are seen. No hemodynamically significant stenosis can be seen within the arteries of the neck. Additional findings: [place] developmental anomalies Moderate cervical spine degenerative change The estimate of stenosis included in the report of the imaging study was calculated using the NASCET method Reviewed by: Jonathan Chaudhry MD on 05/02/2023 12:23 PM RITA Approved by: Jonathan Chaudhry MD on 05/02/2023 12:23 PM RITA Station ID: [id number]
[2023-05-02 14:19] VITALS: BP 191/84; O2SAT 95
[2023-05-02] MEDS ORDERED: iohexoL-300 100 ML VIAL IVP ONE (19:08)
== END 2023-05-02 14:21 | disposition home or self-care (01) ==
LOC: ED 10:11
DX: G45.9 Transient cerebral ischemic attack, unspecified (principal); I10 Essential (primary) hypertension; R47.01 Aphasia; R01.1 Cardiac murmur, unspecified
CPT/HCPCS: 36415; 70496; 70498; 80053; 83690; 83735; 85025; 93005; 99284; A9270; Q9967

== ENCOUNTER 2023-05-04 11:33 | Outpatient (CLI) | payer MEDICARE ==
--- NOTE | 2023-05-04 14:48 | XRAY Report ---
PROCEDURE: Hip w/Pelvis 2-3V LT INDICATIONS: LEFT HIP PAIN TECHNIQUE: AP pelvis with lateral view of the left hip. COMPARISON: Left hip radiographs 10/07/2022. FINDINGS: Bones: No acute fractures or dislocations. No suspicious bony lesions. There is osteopenia. Degen erative changes are seen in the included spine. Mild degenerative changes are seen in the hips. Soft tissues: Calcifications projecting over the central pelvis related to a degenerated fibroid. IMPRESSION: Mild bilateral hip osteoarthrosis. Degenerative changes are noted in the included lumbar spine. Reviewed by: Arnoldo Andino MD on 05/04/2023 2:47 PM PDT Approved by: Arnoldo Andino MD on 05/04/2023 2:47 PM PDT Station ID: [id number]
== END 2023-05-04 11:34 | disposition home or self-care (01) ==
LOC: DI.S 11:33
PROVIDERS: ATTEND Physician Assistant
DX: M16.0 Bilateral primary osteoarthritis of hip (principal); M47.816 Spondylosis without myelopathy or radiculopathy, lumbar region

== ENCOUNTER 2024-01-05 08:00 | Outpatient (CLI) | payer MEDICARE ==
--- NOTE | 2024-01-06 08:49 | XRAY Report ---
PROCEDURE: Knee 4+V LT INDICATIONS: PAIN IN LEFT KNEE TECHNIQUE: 3 views of the knee(s) were acquired. COMPARISON: X-ray left knee, 06/20/2019. FINDINGS: Bones: No fractures or dislocations. No suspicious bony lesions. Mild tricompartmental knee joint d egeneration. Soft tissues: Trace knee joint effusion. No suspicious soft tissue calcifications or masses. IMPRESSION: 1. No acute bony abnormality. 2. Mild degenerative joint disease. 3. Trace knee joint effusion. 4. If there is clinical suspicion for internal derangement, consider MRI. Reviewed by: Phyllis Webb MD on 01/06/2024 8:48 AM PDT Approved by: Phyllis Webb MD on 01/06/2024 8:48 AM PDT Station ID: [id number]
== END 2024-01-05 23:59 | disposition home or self-care (01) ==
LOC: DI.S 08:00
PROVIDERS: ATTEND Registered Nurse
DX: M17.12 Unilateral primary osteoarthritis, left knee (principal); M25.462 Effusion, left knee